=== PATIENT | female | born 1970 | race Caucasian/White ===

== ENCOUNTER 2016-10-02 21:15 | Emergency (ER) ==
[2016-10-02] MEDS ORDERED: CIPRODEX OTIC SUSPENSION LEFT EAR ONE (23:47)
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
[2016-10-03 00:38] VITALS: BP 115/59
--- NOTE | 2016-10-03 06:53 | Diag Imaging Result Document ---
PROCEDURE NAME: SHOULDER-LEFT - 10/02/2016 LEFT SHOULDER 3 VIEWS: FINDINGS: No separation at the acromioclavicular joint. No acute fracture or dislocation. Possible prior dislocation with deformity to the humeral head. IMPRESSION: Possible old injury to the humeral head from a prior dislocation, but no acute dislocation on the current exam.
== END 2016-10-03 00:38 | disposition home or self-care (01) ==
LOC: ED 21:15
DX: S46.912A Strain of unspecified muscle, fascia and tendon at shoulder and upper arm level, left arm, initial encounter (principal); M25.512 Pain in left shoulder; H92.02 Otalgia, left ear; V18.0XXA Pedal cycle driver injured in noncollision transport accident in nontraffic accident, initial encounter; F17.210 Nicotine dependence, cigarettes, uncomplicated; Z71.6 Tobacco abuse counseling; Z79.899 Other long term (current) drug therapy